=== PATIENT | female | born 1985 | race Caucasian/White ===

== ENCOUNTER 2017-02-11 16:35 | Emergency (ER) | payer BC ==
[~2017-02-11] VITALS: Ht 162.6 cm; Wt 69.4 kg
[2017-02-11 20:12] VITALS: BP 138/87
== END 2017-02-11 20:16 | disposition home or self-care (01) ==
LOC: EME 16:35
DX: S20.212A Contusion of left front wall of thorax, initial encounter (principal); S80.12XA Contusion of left lower leg, initial encounter; W17.89XA Other fall from one level to another, initial encounter; Y92.89 Other specified places as the place of occurrence of the external cause; F17.200 Nicotine dependence, unspecified, uncomplicated
CPT/HCPCS: 71100; 99281; 99284

== ENCOUNTER 2017-11-02 07:33 | Emergency (ER) | payer BC ==
[~2017-11-02] VITALS: Ht 162.6 cm; Wt 66.3 kg
[2017-11-02 08:17] LABS: BASOPHIL COUNT 0.1 K/uL (0-0.1); EOSINOPHIL (%) 11.3 % (0-5); HEMATOCRIT 38.9 % (36.0-46.0); HEMOGLOBIN 13.8 G/DL (11.9-15.5); IMMATURE GRANULOCYTE (%) 0.2 % (0.0-0.7); LYMPHOCYTE (%) 34.5 % (15-42); LYMPHOCYTE COUNT 3.2 K/uL (1.0-2.8); MCH 31.5 PG (29.0-34.0); MCHC 35.5 G/DL (30.0-36.0); MCV 88.8 FL (83-99); MONOCYTE (%) 7.3 % (3-12); MONOCYTE COUNT 0.7 K/uL (0-0.8); NEUTROPHIL (%) 45.7 % (45-76); NEUTROPHIL COUNT 4.2 K/uL (1.8-6.4); PLATELET COUNT 263 K/uL (156-360); RBC DIS.WIDTH-CV 11.9 % (11.8-14.6); RBC DIS.WIDTH-SD 38.5 % (39-53); RED BLOOD COUNT 4.38 M/uL (3.80-5.20); WHITE BLOOD COUNT 9.2 K/uL (4.1-10.2)
[2017-11-02 08:25] LABS: D-DIMER ELISA < 150.00 ng/mLDDU (<230)
[2017-11-02 08:28] LABS: CHLORIDE 109 mEq/L (99-109); POTASSIUM 3.8 mEq/L (3.7-5.4); SODIUM 140 mEq/L (136-147)
[2017-11-02 08:30] LABS: GLUCOSE 82 mg/dL (70-99)
[2017-11-02 08:34] LABS: CREATININE 0.7 mg/dL (0.6-1.3); GFR ESTIMATE (CALCULATED) > 59 mL/min/; UREA NITROGEN (BUN) 14 mg/dL (9-23)
[2017-11-02 08:38] LABS: TROP-I INTERPRETATION NEGATIVE; TROPONIN-I < 0.01 ng/mL (0.0-0.30)
[2017-11-02 10:28] LABS: TROP-I INTERPRETATION NEGATIVE; TROPONIN-I < 0.01 ng/mL (0.0-0.30)
[2017-11-02] MEDS ORDERED: MOTRIN800 MG PO (10:34)
[2017-11-02 10:57] VITALS: BP 106/60
== END 2017-11-02 10:58 | disposition home or self-care (01) ==
LOC: EME 07:33
PROVIDERS: Emergency Medicine
DX: R07.2 Precordial pain (principal); R94.31 Abnormal electrocardiogram [ECG] [EKG]; F17.200 Nicotine dependence, unspecified, uncomplicated
CPT/HCPCS: 71046; 80048; 84484; 85025; 85379; 93005; 99281; 99285